=== PATIENT | male | born 1965 | race Caucasian/White ===

== ENCOUNTER 2022-02-20 09:49 | Emergency (ER) | payer MEDICAID, SELFPAY ==
[2022-02-20 09:52] VITALS: BP 158/101; PULSE 74; RESP 16; TEMP 37.1; O2SAT 96; BMI 28.7
--- NOTE | 2022-02-20 11:21 | EX.ED.DYSGE1 ---
HPI <NELLY Balderrama - Last Filed: 02/20/22 12:52> History of Present Illness Chief Complaint: Nausea/Vomiting Narrative Narrative: 56-year-old male with history of drug abuse, who was recently in [facility] for bipolar disorder, is now at a treatment facility in [place]. Patient has been there for a couple days, and was brought in by a staff member. Per the staff member, he has 11 prescriptions that he took to the [facility], however due to insurance reasons he was unable to get anything filled. He does have a social sciences instructor however the case will probably not get back to him till Monday. Patient denies any chest pain or shortness of breath. Patient states he feels some abdominal cramping and nausea. Denies any fever or chills. PFSH <NELLY Balderrama - Last Filed: 02/20/22 12:52> [facility] Home Medications ondansetron 4 mg disintegrating tablet 4 mg PO Q8H PRN nausea and vomiting #10 tabs 02/20/22 [Rx Last Taken Unknown] Allergy/AdvReac Type Severity Reaction Status Date / Time No Known Allergies Allergy Verified 02/20/22 09:52 Social History Smoking Status: Current every day smoker tobacco type: cigarettes ROS <NELLY Balderrama - Last Filed: 02/20/22 12:52> ROS ED ROS Narrative Constitutional: Negative for fever, chills, weight loss, weakness Eyes: Negative for vision loss, vision change, double vision ENT: Negative for any sore throat, ear pain, congestion Cardiovascular: Negative for any chest pain, tightness, palpitations Respiratory: Negative for any cough, sputum production, hemoptysis, dyspnea, dyspnea on exertion, orthopnea Gastrointestinal: Negative for any abdominal pain, vomiting, diarrhea, constipation, blood in stool, blood in vomit. Positive for nausea, abdominal cramping : Negative for any urinary frequency, dysuria, retention, blood in urine Muscle skeletal: Negative for any muscle joint pain, stiffness, myalgias, arthralgias, neck pain, back pain Neurological: Negative for any headache, syncope, numbness or tingling, dizziness Skin: Negative for any rashes, lumps, itching, abrasions, lacerations Psychiatric: Negative for any depression, anxiety, stress, suicidal ideation, homicidal ideation Hematologic: Negative for any easy bruising, excessive bruising, easy bleeding Allergies: Negative for any eczema, hives, rash EXAM <NELLY Balderrama - Last Filed: 02/20/22 12:52> Physical Exam Narrative Exam Narrative: Vital signs reviewed. Patient alert orient x4. Patient is with a staff member from the rehab facility HEET: Head normocephalic atraumatic, TMs clear bilaterally. Posterior pharynx is clear, dry mucous membranes. Nares clear bilaterally. Neck: Supple with no lymphadenopathy or tenderness. No signs of meningismus, negative jolt sign. Cardiac: Regular rate and rhythm no murmurs gallops or rubs, equal peripheral pulses bilaterally. Respiratory: Lungs clear to auscultation bilaterally. No chest tenderness. Abdomen: Soft, nontender, nondistended. No abdominal bruit or pulsatile masses. No hepatosplenomegaly Extremities: No peripheral edema, no signs of gross trauma or deformity. Active full range of motion of all extremities. Neuro: Cranial nerves II through XII intact, no focal neurological deficits. Skin: Clean dry and intact with no rash, purpura, petechiae, vesicles or pustules. Backs/flank: No CVA tenderness, no midline spinal tenderness, no deformity. Psych: Normal mood and affect. No SI, HI or acute psychosis. Const Vital Signs: 02/20/22 09:52 Temperature 98.7 F Temperature Source Temporal Pulse Rate 74 Respiratory Rate 16 Blood Pressure 158/101 H Blood Pressure Mean 120 Pulse Ox 96 Oxygen Delivery Method Room Air <Dr. Fermin Bush DO - Last Filed: 02/20/22 13:28> Physical Exam Const Vital Signs: 02/20/22 09:52 Temperature 98.7 F Temperature Source Temporal Pulse Rate 74 Respiratory Rate 16 Blood Pressure 158/101 H Blood Pressure Mean 120 Pulse Ox 96 Oxygen Delivery Method Room Air MDM <NELLY Balderrama - Last Filed: 02/20/22 12:52> [facility] Lab Data Labs: Laboratory Results - last 24 hr 02/20/22 02/20/22 12:15 12:15 WBC 7.1 RBC 5.50 Hgb 16.0 Hct 46.3 MCV 84.2 MCH 29.1 MCHC 34.6 RDW Std Deviation 40.4 RDW Coeff of Krystle 13.1 Plt Count 270 MPV 8.8 Immature Gran % (Auto) 0.600 Neut % (Auto) 71.2 H Lymph % (Auto) 22.7 [place] % (Auto) 5.1 Eos % (Auto) 0.1 Baso % (Auto) 0.3 Absolute Neuts (auto) 5.0 Absolute Lymphs (auto) 1.60 Nucleated RBC % 0 Sodium 133 L Potassium 4.4 Chloride 101 Carbon Dioxide 23.0 Anion Gap 9 BUN 12 Creatinine 0.96 Estim Creat Clear Calc 95.43 Est GFR (MDRD) Af Amer 105 Est GFR (MDRD) Non-Af 87 BUN/Creatinine Ratio 12.5 Glucose 68 L Calcium 9.1 Total Bilirubin 0.60 Direct Bilirubin 0.14 AST 26 ALT 23 Alkaline Phosphatase 107 Total Protein 8.8 H Albumin 4.0 Globulin 4.8 H Lipase 277 Treatment and Re-Evaluation Narrative: Patient appears well, patient appears nontoxic, vital signs are stable. Patient presents to the emergency department abdominal cramping, nausea as well as concerning for his blood pressure secondary to not having his pills secondary to insurance issues. Due to the patient's age, history, patient did receive some basic laboratory values. Patient CBC was unremarkable, patient's chemistries was unremarkable, patient's blood sugar was 68, he was given something to eat and drink here, he states he has not been eating and drinking normally secondary to nausea. Patient will continue to get a hold of his social sciences instructor tomorrow and get his daily medications, I will also add Zofran to his regimen. Patient is happy with the plan of care, this time I do not believe there is any evidence to suspect any acute abdominal process. Patient is happy with the plan of care, is able to take by mouth fluids and is stable for discharge. <Dr. Fermin Bush, DO - Last Filed: 02/20/22 13:28> [facility] Narrative Medical decision making narrative: I have personally performed a face to face assessment of the patient and have reviewed the NATHALIA Note. I performed a substantive portion of the visit including all aspects of the following. My ray findings include: History: Patient presents with nausea and vomiting that began yesterday. Patient states he is out of his blood pressure medications due to insurance reasons. Patient states he noticed his blood pressure was elevated. Patient states he is talking with his caser up to try and get his insurance to cover his medications. Patient states he vomited up some streaks of blood today. Patient denies any chest pain or shortness of breath. Patient denies any fevers or chills. Exam: Vital signs are stable except for mildly elevated blood pressure 158/101. Patient is afebrile. Patient is in no acute distress. Oral mucosa is pink and moist. Neck is supple. Trachea is midline. There is no JVD. Heart was regular rate and rhythm. Lungs are clear and equal bilaterally. Abdomen is soft. Bowel sounds are normal. There is some mild diffuse tenderness. There is no rebound or guarding noted. Medical Decision Making: Patient was given IV fluids here. Patient was given a dose of Zofran and Bentyl. Patient was given a dose of amlodipine. CBC was within normal limits. Comprehensive metabolic profile was within normal limits. Lipase was normal. Patient is feeling better on reevaluation. Patient was given a prescription for Zofran. Patient was instructed to follow-up with his primary care physician in 5 to 7 days. Patient understood and was agreeable with the plan. All questions were answered. Lab Data Attestation: I reviewed the patient's lab results. Labs: Laboratory Results - last 24 hr 02/20/22 02/20/22 12:15 12:15 WBC 7.1 RBC 5.50 Hgb 16.0 Hct 46.3 MCV 84.2 MCH 29.1 MCHC 34.6 RDW Std Deviation 40.4 RDW Coeff of Krystle 13.1 Plt Count 270 MPV 8.8 Immature Gran % (Auto) 0.600 Neut % (Auto) 71.2 H Lymph % (Auto) 22.7 [place] % (Auto) 5.1 Eos % (Auto) 0.1 Baso % (Auto) 0.3 Absolute Neuts (auto) 5.0 Absolute Lymphs (auto) 1.60 Nucleated RBC % 0 Sodium 133 L Potassium 4.4 Chloride 101 Carbon Dioxide 23.0 Anion Gap 9 BUN 12 Creatinine 0.96 Estim Creat Clear Calc 95.43 Est GFR (MDRD) Af Amer 105 Est GFR (MDRD) Non-Af 87 BUN/Creatinine Ratio 12.5 Glucose 68 L Calcium 9.1 Total Bilirubin 0.60 Direct Bilirubin 0.14 AST 26 ALT 23 Alkaline Phosphatase 107 Total Protein 8.8 H Albumin 4.0 Globulin 4.8 H Lipase 277 Discharge Plan Triage Chief Complaint: Nausea/Vomiting ED Midlevel Provider: Tulio Javier ED Provider: Fermin Bush Dx/Rx/DC Orders Clinical Impression: Nausea, Hypertension Instructions: Controlling High Blood Pressure, ED Vomiting (Adult) Prescriptions: New ondansetron 4 mg tablet,disintegrating 4 mg PO Q8H PRN (Reason: nausea and vomiting) Qty: 10 0RF Primary Care Provider: Care Physician,No Primary Referrals: Esmer Rosales MD [Med Staff - [facility] [facility]] - Care Physician,No Primary [Primary Care Provider] - Activity Restrictions/Additional Instructions: Please follow-up with your social sciences instructor and receive all of your medicines. Disposition Disposition: Home, Self Care Discharge Date/Time: 02/20/22 13:09
[2022-02-20] MEDS: Dicyclomine 20 MG/2 ML Vial IM (11:46)
[2022-02-20] MEDS: amLODIPine 10 MG Tablet PO (11:46)
[2022-02-20] MEDS: 0.9% Normal Saline 1,000 ML 1000 ML IV (11:47)
[2022-02-20] MEDS: Ondansetron 4 MG/2 ML Vial IV (11:47)
[2022-02-20 12:27] LABS: Basophil# 0.02 X10^3/uL; Basophil% 0.3 % (0-1); Eosinophil# 0.01 X10^3/uL; Eosinophils% 0.1 % (0-5); Hematocrit 46.3 % (40-54); Lymphocyte % 22.7 % (19-41); Mean Corp Hgb Conc 34.6 g/dL (32-36); Mean Corpuscular Hgb 29.1 pg (27.0-32.0); Mean Corpuscular Volume 84.2 fL (80-94); Mean Platelet Vol. 8.8 fl (6.2-12.0); Monocyte# 0.36 X10^3/uL; Monocyte% 5.1 % (0-10); NRBC Flagged by Analyzer 0 % (0-5); Neutrophil # 5.03 X10^3/uL (2.7-7.7); Neutrophil % 71.2 % (47-70); Platelet Count 270 K/mm3 (150-450); RBC Distribution Width CV 13.1 % (11.6-14.6); RBC Distribution Width SD 40.4 fl (35.1-43.9); White Blood Count 7.1 K/mm3 (4.4-11.0)
[2022-02-20 12:38] LABS: AST(SGOT) 26 U/L (15-37); Alanine Aminotransfer ALT/SGPT 23 U/L (16-61); Alkaline Phosphatase 107 U/L (45-117); Anion Gap 9 (5-15); BUN 12 mg/dL (7-18); BUN/Creat Ratio 12.5 RATIO (10-20); Bilirubin, Direct 0.14 mg/dL (0.00-0.30); Calcium,Total 9.1 mg/dL (8.5-10.1); Chloride 101 mmol/L (98-107); Creatinine, Serum 0.96 mg/dL (0.70-1.30); EST Glomerular Filtration Rate 87 mL/min (>60); Est Glom Filt Rate - Afr Amer 105 mL/min (>60); Estimated Creatinine Clearance 95.43 ml/min; Globulin 4.8 g/dL (2.2-4.2); Glucose 68 mg/dL (74-106); Lipase 277 U/L (73-393); Potassium 4.4 mmol/L (3.5-5.1); Protein, Total 8.8 g/dL (6.4-8.2); Sodium Level 133 mmol/L (136-145)
--- NOTE | 2022-02-20 13:06 | ED.RN ---
Pt. given glass of apple juice for blood sugar.
== END 2022-02-20 13:09 | disposition home or self-care (01) ==
PROVIDERS: Nurse Practitioner; Emergency Provider Emergency Medicine; Visit Provider Emergency Medicine
DX: R11.2 Nausea with vomiting, unspecified (principal); F31.9 Bipolar disorder, unspecified; I10 Essential (primary) hypertension; F17.210 Nicotine dependence, cigarettes, uncomplicated
CPT/HCPCS: 80048; 80076; 83690; 85025; 96361; 96372; 96374; 99282; J7030; A4216; J2405